=== PATIENT | female | born 1955 | race Caucasian/White ===

== ENCOUNTER 2019-05-24 12:07 | Inpatient (IN) ==
[2019-05-24] MEDS ORDERED: ONDANSETRON 4 MG/2 ML VIAL IV PRN (13:59)
[2019-05-24 14:10] LABS: Basophils % 0.1 % (0.0-0.8); Hematocrit 39.8 VOL% (35.7-47.0); Hemoglobin 12.4 GM/DL (12.0-16.0); Immature Granulocytes % 1.4 %; Immature Granulocytes Absolute 0.12 #; Lymphocytes # 0.6 10*3/uL (1.4-4.0); Lymphocytes % 6.6 % (21.3-54.2); Mean Corpuscular HGB Conc 31.2 GM/DL (32-36); Mean Platelet Volume 9.2 FL (9.6-12.0); Monocytes % 5.8 % (1.7-12.7); Neutrophils % 86.1 % (38.7-73.9); Platelet Count 276 T/CUMM (130-400); Red Blood Count 4.28 MC/CUMM (3.8-5.5); Red Cell Distribution Width 16.1 % (9.3-17.3); White Blood Count 8.3 T/CUMM (4-12)
[2019-05-24 14:19] LABS: PT Patient Result 10.5 SECS (9.6-12.2); Partial Thromboplastin Time 23.7 SECS (20.8-36.0)
[2019-05-24] MEDS: SODIUM CHLORIDE 0.9% 1,000 ML IV SCH (14:40)
[2019-05-24] MEDS: fentaNYL 25 MCG/HR PATCH TRANSDERM SCH (15:54)
[2019-05-24] MEDS ORDERED: MORPHINE 4 MG/1 ML VIAL IV SCH (16:00)
[2019-05-24] MEDS: MORPHINE 4 MG/1 ML VIAL IV PRN ×2 (16:07→20:11)
[2019-05-24] MEDS ORDERED: LOPERAMIDE 2 MG CAPSULE PO PRN (16:26)
[2019-05-24] MEDS: MORPHINE ER 30 MG TABLET PO SCH (20:15)
[2019-05-24] MEDS: GABAPENTIN 100 MG CAPSULE PO SCH (20:15)
[2019-05-24] MEDS: HEPARIN 5,000 UNIT/1 ML VIAL SUBCUT SCH (20:15)
[2019-05-24] MEDS: DONEPEZIL 5 MG TABLET PO SCH (21:21)
[2019-05-24] MEDS: SIMVASTATIN 20 MG TABLET PO SCH (21:21)
[2019-05-25] MEDS: SODIUM CHLORIDE 0.9% 1,000 ML IV SCH ×3 (00:40→19:31)
[2019-05-25] MEDS: MORPHINE 4 MG/1 ML VIAL IV PRN ×4 (04:05→22:05)
[2019-05-25 04:48] LABS: Eosinophils % 0.3 % (0.00-10.9); Hemoglobin 12.5 GM/DL (12.0-16.0); Immature Granulocytes % 0.8 %; Immature Granulocytes Absolute 0.06 #; Lymphocytes % 13.6 % (21.3-54.2); Mean Corpuscular HGB Conc 31.3 GM/DL (32-36); Mean Corpuscular Volume 93.2 FL (87-102); Mean Platelet Volume 9.7 FL (9.6-12.0); Monocytes % 11.3 % (1.7-12.7); Platelet Count 257 T/CUMM (130-400); Red Blood Count 4.29 MC/CUMM (3.8-5.5); White Blood Count 7.6 T/CUMM (4-12)
[2019-05-25] MEDS: HEPARIN 5,000 UNIT/1 ML VIAL SUBCUT SCH ×3 (05:11→20:55)
[2019-05-25 05:12] LABS: Calcium 8.4 MG/DL (8.5-10.1); Osmolality,Calculated 279.1 MOS/KG (273-304)
[2019-05-25] MEDS ORDERED: LISINOPRIL/HCTZ 20-12.5 MG TABLET PO SCH (09:00)
[2019-05-25] MEDS: CLOPIDOGREL 75 MG TABLET PO SCH (09:31)
[2019-05-25] MEDS: GABAPENTIN 100 MG CAPSULE PO SCH ×2 (09:31→20:53)
[2019-05-25] MEDS: LORATADINE 10 MG TABLET PO SCH (09:31)
[2019-05-25] MEDS: PANTOPRAZOLE 40 MG TABLET PO SCH (09:31)
[2019-05-25] MEDS: traZODone 50 MG TABLET PO SCH (09:31)
[2019-05-25] MEDS: MORPHINE ER 30 MG TABLET PO SCH ×2 (09:31→20:54)
[2019-05-25] MEDS: amLODIPine 10 MG TABLET PO SCH (09:44)
[2019-05-25] MEDS ORDERED: ceFAZolin 1,000 MG in SYRINGE 1 EACH IV ONE (10:22)
[2019-05-25] MEDS ORDERED: SKIN HEALING OINT (AQUAPHOR) 50 GM TUBE TOP PRN (15:29)
[2019-05-25] MEDS ORDERED: HYDROCORTISONE 25 MG SUPP RECTAL ONE (18:05)
[2019-05-25] MEDS: LACTOBACILLUS RHAMNOSUS GG CAPSULE PO SCH (20:54)
[2019-05-25] MEDS: DONEPEZIL 5 MG TABLET PO SCH (20:54)
[2019-05-25] MEDS: SIMVASTATIN 20 MG TABLET PO SCH (20:54)
[2019-05-25] MEDS: DOCUSATE SODIUM 100 MG CAPSULE PO SCH (20:54)
[2019-05-26] MEDS: MORPHINE 4 MG/1 ML VIAL IV PRN ×5 (02:49→21:16)
[2019-05-26] MEDS: HEPARIN 5,000 UNIT/1 ML VIAL SUBCUT SCH ×3 (04:01→20:25)
[2019-05-26 05:12] LABS: Calcium 7.8 MG/DL (8.5-10.1); Osmolality,Calculated 283.7 MOS/KG (273-304)
[2019-05-26] MEDS: SODIUM CHLORIDE 0.9% 1,000 ML IV SCH ×3 (06:03→23:11)
[2019-05-26] MEDS ORDERED: HYDROCORTISONE 25 MG SUPP RECTAL ONE (06:30)
[2019-05-26] MEDS ORDERED: HEPARIN 5,000 UNIT/1 ML VIAL ONE (06:39)
[2019-05-26] MEDS ORDERED: LIDOCAINE 1%/EPI INJ 20 ML VIAL ONE (06:40)
[2019-05-26] MEDS ORDERED: BUPIVACAINE MPF 0.25% 30 ML VIAL ONE (06:40)
[2019-05-26] MEDS ORDERED: TISSUE ADHESIVE 1 EACH APPLICATOR TOP ONE (07:46)
[2019-05-26] MEDS ORDERED: LIDOCAINE 2% 5 ML VIAL ONE (08:10)
[2019-05-26] MEDS ORDERED: propofoL 200 MG/20 ML VIAL IV ONE (08:10)
[2019-05-26] MEDS ORDERED: SODIUM CHLORIDE 0.9% 100 ML IV ONE (08:11)
[2019-05-26] MEDS ORDERED: MIDAZOLAM 2 MG/2 ML VIAL ONE (08:11)
[2019-05-26] MEDS ORDERED: fentaNYL 100 MCG/2 ML VIAL ONE (08:11)
[2019-05-26] MEDS: traZODone 50 MG TABLET PO SCH (08:59)
[2019-05-26] MEDS: amLODIPine 10 MG TABLET PO SCH (08:59)
[2019-05-26] MEDS: LACTOBACILLUS RHAMNOSUS GG CAPSULE PO SCH ×2 (09:00→20:24)
[2019-05-26] MEDS: DOCUSATE SODIUM 100 MG CAPSULE PO SCH ×2 (09:00→20:24)
[2019-05-26] MEDS: LORATADINE 10 MG TABLET PO SCH (09:00)
[2019-05-26] MEDS: GABAPENTIN 100 MG CAPSULE PO SCH ×2 (09:00→20:24)
[2019-05-26] MEDS: PANTOPRAZOLE 40 MG TABLET PO SCH (09:01)
[2019-05-26] MEDS: CLOPIDOGREL 75 MG TABLET PO SCH (09:01)
[2019-05-26] MEDS: MORPHINE ER 30 MG TABLET PO SCH ×2 (09:11→20:24)
[2019-05-26] MEDS ORDERED: PALONOSETRON 0.25 MG/5 ML VIAL IV ONE (12:17)
[2019-05-26] MEDS ORDERED: CARBOplatin 400 MG in SODIUM CHLORIDE 0.9% 250 ML IV ONE (13:00)
[2019-05-26] MEDS: DEXAMETHASONE INJ 10 MG in SODIUM CHLORIDE 0.9% 50 ML IV SCH (14:05)
[2019-05-26] MEDS: HYDROCORTISONE 25 MG SUPP RECTAL PRN (14:55)
[2019-05-26] MEDS: ETOPOSIDE 200 MG in SODIUM CHLORIDE 0.9% 500 ML IV SCH (15:34)
[2019-05-26] MEDS: DONEPEZIL 5 MG TABLET PO SCH (20:24)
[2019-05-26] MEDS: SIMVASTATIN 20 MG TABLET PO SCH (20:25)
[2019-05-27] MEDS: MORPHINE 4 MG/1 ML VIAL IV PRN ×6 (01:01→23:07)
[2019-05-27] MEDS: HEPARIN 5,000 UNIT/1 ML VIAL SUBCUT SCH ×3 (04:09→20:17)
[2019-05-27 05:57] LABS: Hematocrit 37.2 VOL% (35.7-47.0); Hemoglobin 11.2 GM/DL (12.0-16.0); Immature Granulocytes Absolute 0.06 #; Lymphocytes # 0.4 10*3/uL (1.4-4.0); Lymphocytes % 7.5 % (21.3-54.2); Mean Corpuscular HGB Conc 30.1 GM/DL (32-36); Mean Corpuscular Volume 96.9 FL (87-102); Mean Platelet Volume 9.8 FL (9.6-12.0); Monocytes % 5.6 % (1.7-12.7); Neutrophils % 85.9 % (38.7-73.9); Platelet Count 189 T/CUMM (130-400); Red Blood Count 3.84 MC/CUMM (3.8-5.5); Red Cell Distribution Width 15.8 % (9.3-17.3); White Blood Count 5.9 T/CUMM (4-12)
[2019-05-27 06:17] LABS: Calcium 7.5 MG/DL (8.5-10.1)
[2019-05-27] MEDS: CLOPIDOGREL 75 MG TABLET PO SCH (08:51)
[2019-05-27] MEDS: GABAPENTIN 100 MG CAPSULE PO SCH ×2 (08:51→20:17)
[2019-05-27] MEDS: LACTOBACILLUS RHAMNOSUS GG CAPSULE PO SCH ×2 (08:51→20:17)
[2019-05-27] MEDS: MORPHINE ER 30 MG TABLET PO SCH ×2 (08:52→20:17)
[2019-05-27] MEDS: PANTOPRAZOLE 40 MG TABLET PO SCH (08:52)
[2019-05-27] MEDS: LORATADINE 10 MG TABLET PO SCH (08:53)
[2019-05-27] MEDS: traZODone 50 MG TABLET PO SCH (08:53)
[2019-05-27] MEDS: DOCUSATE SODIUM 100 MG CAPSULE PO SCH ×2 (08:53→20:17)
[2019-05-27] MEDS: HYDROCORTISONE 25 MG SUPP RECTAL PRN ×2 (08:53→13:13)
[2019-05-27] MEDS: fentaNYL 25 MCG/HR PATCH TRANSDERM SCH (08:54)
[2019-05-27] MEDS: DEXAMETHASONE INJ 10 MG in SODIUM CHLORIDE 0.9% 50 ML IV SCH (08:57)
[2019-05-27] MEDS: amLODIPine 10 MG TABLET PO SCH (08:59)
[2019-05-27] MEDS: ETOPOSIDE 200 MG in SODIUM CHLORIDE 0.9% 500 ML IV SCH (13:01)
[2019-05-27] MEDS ORDERED: fentaNYL 50 MCG/HR PATCH TRANSDERM SCH (14:30)
[2019-05-27] MEDS: SODIUM CHLORIDE 0.9% 1,000 ML IV SCH (15:31)
[2019-05-27] MEDS: SIMVASTATIN 20 MG TABLET PO SCH (20:17)
[2019-05-27] MEDS: DONEPEZIL 5 MG TABLET PO SCH (20:17)
[2019-05-28] MEDS: SODIUM CHLORIDE 0.9% 1,000 ML IV SCH ×2 (01:11→14:47)
[2019-05-28] MEDS: MORPHINE 4 MG/1 ML VIAL IV PRN ×4 (03:08→15:44)
[2019-05-28] MEDS: HEPARIN 5,000 UNIT/1 ML VIAL SUBCUT SCH ×2 (03:12→14:48)
[2019-05-28] MEDS: MORPHINE ER 30 MG TABLET PO SCH (09:06)
[2019-05-28] MEDS: DOCUSATE SODIUM 100 MG CAPSULE PO SCH (09:07)
[2019-05-28] MEDS: traZODone 50 MG TABLET PO SCH (09:07)
[2019-05-28] MEDS: CLOPIDOGREL 75 MG TABLET PO SCH (09:07)
[2019-05-28] MEDS: amLODIPine 10 MG TABLET PO SCH (09:07)
[2019-05-28] MEDS: GABAPENTIN 100 MG CAPSULE PO SCH (09:07)
[2019-05-28] MEDS: LACTOBACILLUS RHAMNOSUS GG CAPSULE PO SCH (09:07)
[2019-05-28] MEDS: LORATADINE 10 MG TABLET PO SCH (09:07)
[2019-05-28] MEDS: PANTOPRAZOLE 40 MG TABLET PO SCH (09:07)
[2019-05-28] MEDS: DEXAMETHASONE INJ 10 MG in SODIUM CHLORIDE 0.9% 50 ML IV SCH (10:40)
[2019-05-28] MEDS: ETOPOSIDE 200 MG in SODIUM CHLORIDE 0.9% 500 ML IV SCH (11:21)
[2019-05-28] MEDS ORDERED: WITCH HAZEL PADS 100/JAR TOP PRN (12:19)
[2019-05-28] MEDS ORDERED: POLYETHYLENE GLYCOL POWDER 17 GM PACK PO SCH (12:30)
[2019-05-28] MEDS ORDERED: PRAMOXINE/HYDROCORTISONE RECTAL FOAM 10 GM CAN TOP PRN (12:35)
[2019-05-28] MEDS ORDERED: HEPARIN LOCK FLUSH 500 UNIT/5 ML SYRINGE IV ONE (15:28)
[2019-05-28 15:53] VITALS: BP 134/65
== END 2019-05-28 16:30 | disposition home or self-care (01) | DRG 940 ==
LOC: SUATTDRO 13:34 → N.4E 13:34
PROVIDERS: ADMIT Internal Medicine; ATTEND Internal Medicine

== ENCOUNTER 2019-07-06 09:55 | Inpatient (IN) ==
[2019-07-06] MEDS ORDERED: hydrALAZINE 20 MG/1 ML VIAL IV PRN (11:11)
[2019-07-06] MEDS ORDERED: ACETAMINOPHEN 325 MG TABLET PO PRN (11:11)
[2019-07-06] MEDS ORDERED: NICOTINE 21 MG/24 HR PATCH TRANSDERM PRN (11:11)
[2019-07-06] MEDS ORDERED: cefTRIAXone 1,000 MG in SYRINGE 1 EACH IV SCH (11:30)
[2019-07-06] MEDS ORDERED: SODIUM CHLORIDE 0.9% 1,000 ML IV SCH (11:30)
[2019-07-06 11:51] LABS: Basophils % 0.5 % (0.0-0.8); Eosinophils # 0.1 10*3/uL (0.0-0.87); Eosinophils % 1.1 % (0.00-10.9); Hematocrit 28.1 VOL% (35.7-47.0); Hemoglobin 8.4 GM/DL (12.0-16.0); Immature Granulocytes % 8.6 %; Immature Granulocytes Absolute 0.47 #; Lymphocytes # 0.7 10*3/uL (1.4-4.0); Lymphocytes % 12.8 % (21.3-54.2); Mean Corpuscular HGB Conc 29.9 GM/DL (32-36); Mean Platelet Volume 9.5 FL (9.6-12.0); Monocytes % 23.6 % (1.7-12.7); NRBC # 0.16 10*3/uL; Neutrophils % 53.4 % (38.7-73.9); Platelet Count 196 T/CUMM (130-400); Red Blood Count 2.81 MC/CUMM (3.8-5.5); Red Cell Distribution Width 19.1 % (9.3-17.3); White Blood Count 5.5 T/CUMM (4-12)
[2019-07-06 12:21] LABS: Albumin 2.9 G/DL (3.4-5.0); Bilirubin,Total 0.5 MG/DL (0.2-1.0); Calcium 8.7 MG/DL (8.5-10.1); Osmolality,Calculated 279.5 MOS/KG (273-304); Thyroid Stimulating Hormone 2.76 uIU/ml (0.358-3.74); Total Protein 6.6 G/DL (6.4-8.3)
[2019-07-06] MEDS ORDERED: POTASSIUM CHLORIDE 20 MEQ TABLET PO ONE (12:27)
[2019-07-06] MEDS ORDERED: MAGNESIUM SULF RIDER 2 GM in PREMIX 1 EACH IV ONE (12:28)
[2019-07-06 12:48] LABS: Anisocytosis 2+; Band Neutrophils 16 % (0-10); Lymphocytes 13 % (20-55); Metamyelocytes 3 %; Nucleated Red Blood Cells 4 (0-5); Platelet Estimate Normal; Segmented Neutrophils 48 % (50-85); Total Cells Counted 100
[2019-07-06 12:49] LABS: Macrocytosis Slight; Polychromasia Slight
[2019-07-06] MEDS: MORPHINE 4 MG/1 ML VIAL IV PRN ×2 (13:24→17:55)
[2019-07-06 15:29] LABS: % Iron Saturation 11.7 % (18-50); Ferritin 228.8 ng/ml (8-252)
[2019-07-06] MEDS: FUROSEMIDE 40 MG/4 ML VIAL IV SCH (16:22)
[2019-07-06] MEDS: ONDANSETRON 4 MG/2 ML VIAL IV PRN (16:43)
[2019-07-06] MEDS: PIPERACILLIN/TAZOBACTAM 3,375 MG in SODIUM CHLORIDE 0.9% 100 ML IV SCH ×2 (17:56→22:29)
[2019-07-06] MEDS: MORPHINE ER 30 MG TABLET PO SCH (20:47)
[2019-07-06] MEDS: ENOXAPARIN 40 MG/0.4 ML SYRINGE SUBCUT SCH (20:48)
[2019-07-07] MEDS: MORPHINE 4 MG/1 ML VIAL IV PRN ×5 (00:08→22:55)
[2019-07-07 02:28] LABS: Apearance,Urine Slightly Hazy (Clear); Bilirubin,Urine Negative (Negative); Blood, Urine Small mg/dL (Negative); Glucose,Urine (UA) Negative (Negative); Hyaline Casts,Urine 1 /LPF (0-3); Ketones,Urine Negative (Negative); Nitrite,Urine Negative (Negative); Protein,Urine Negative; RBC,Urine 1 /HPF (0-4); Squamous Epithelial Cell,Urine Few /HPF (0-10); Urine Color Yellow (Yellow); Urine Specific Gravity 1.016 (1.001-1.035); WBC,Urine 1 /HPF (0-6)
[2019-07-07 05:24] LABS: Basophils % 0.6 % (0.0-0.8); Eosinophils # 0.1 10*3/uL (0.0-0.87); Eosinophils % 1.6 % (0.00-10.9); Hematocrit 26.5 VOL% (35.7-47.0); Hemoglobin 7.9 GM/DL (12.0-16.0); Immature Granulocytes % 7.4 %; Immature Granulocytes Absolute 0.37 #; Lymphocytes # 0.8 10*3/uL (1.4-4.0); Lymphocytes % 15.9 % (21.3-54.2); Mean Corpuscular HGB Conc 29.8 GM/DL (32-36); Mean Platelet Volume 10.1 FL (9.6-12.0); Monocytes % 21.5 % (1.7-12.7); NRBC # 0.12 10*3/uL; Platelet Count 198 T/CUMM (130-400); Red Blood Count 2.65 MC/CUMM (3.8-5.5); Red Cell Distribution Width 19.3 % (9.3-17.3)
[2019-07-07 05:49] LABS: Band Neutrophils 2 % (0-10); Eosinophils 4 % (0-10); Hypochromasia 1+; Lymphocytes 15 % (20-55); Macrocytosis Slight; Nucleated Red Blood Cells 4 (0-5); Platelet Estimate Adequate; Polychromasia Slight; Segmented Neutrophils 65 % (50-85); Total Cells Counted 100
[2019-07-07 05:50] LABS: Calcium 8.5 MG/DL (8.5-10.1); Osmolality,Calculated 277.7 MOS/KG (273-304)
[2019-07-07 05:56] LABS: Risk Ratio 3.52; VLDL CHOLESTEROL 40.2 MG/DL
[2019-07-07] MEDS ORDERED: SODIUM CHLORIDE 0.9% 1,000 ML IV PRN (07:32)
[2019-07-07] MEDS ORDERED: PERMETHRIN 5% CREAM 60 GM TUBE TOP ONE (08:36)
[2019-07-07] MEDS ORDERED: PERMETHRIN 5% CREAM 60 GM TUBE TOP SCH (09:00)
[2019-07-07] MEDS: PIPERACILLIN/TAZOBACTAM 3,375 MG in SODIUM CHLORIDE 0.9% 100 ML IV SCH ×3 (09:45→19:49)
[2019-07-07] MEDS: POTASSIUM CHLORIDE 20 MEQ TABLET PO SCH ×2 (09:46→15:39)
[2019-07-07] MEDS: PANTOPRAZOLE 40 MG TABLET PO SCH (09:46)
[2019-07-07] MEDS: MORPHINE ER 30 MG TABLET PO SCH ×2 (09:46→21:24)
[2019-07-07] MEDS: HydrOXYzine PAMOATE 25 MG CAPSULE PO PRN ×2 (09:46→21:24)
[2019-07-07] MEDS: FUROSEMIDE 40 MG/4 ML VIAL IV SCH ×2 (09:47→15:35)
[2019-07-07] MEDS: ONDANSETRON 4 MG/2 ML VIAL IV PRN (10:29)
[2019-07-07] MEDS: ENOXAPARIN 40 MG/0.4 ML SYRINGE SUBCUT SCH (21:25)
[2019-07-07] MEDS: diphenhydrAMINE CAP 25 MG CAPSULE PO PRN (22:55)
[2019-07-08] MEDS: PIPERACILLIN/TAZOBACTAM 3,375 MG in SODIUM CHLORIDE 0.9% 100 ML IV SCH ×2 (01:04→08:22)
[2019-07-08] MEDS: MORPHINE 4 MG/1 ML VIAL IV PRN ×2 (04:39→10:12)
[2019-07-08 05:35] LABS: Basophils # 0.1 10*3/uL (0.0-0.2); Basophils % 0.9 % (0.0-0.8); Eosinophils # 0.1 10*3/uL (0.0-0.87); Eosinophils % 1.9 % (0.00-10.9); Hematocrit 30.3 VOL% (35.7-47.0); Hemoglobin 9.5 GM/DL (12.0-16.0); Immature Granulocytes % 5.8 %; Immature Granulocytes Absolute 0.34 #; Lymphocytes # 0.9 10*3/uL (1.4-4.0); Lymphocytes % 15.6 % (21.3-54.2); Mean Corpuscular HGB Conc 31.4 GM/DL (32-36); Mean Corpuscular Volume 95.6 FL (87-102); Mean Platelet Volume 9.6 FL (9.6-12.0); Monocytes % 19.3 % (1.7-12.7); NRBC # 0.14 10*3/uL; Neutrophils % 56.5 % (38.7-73.9); Platelet Count 178 T/CUMM (130-400); Red Blood Count 3.17 MC/CUMM (3.8-5.5); Red Cell Distribution Width 19.6 % (9.3-17.3); White Blood Count 5.9 T/CUMM (4-12)
[2019-07-08 05:50] LABS: Calcium 8.2 MG/DL (8.5-10.1); Osmolality,Calculated 276.8 MOS/KG (273-304)
[2019-07-08 06:06] LABS: Anisocytosis 2+; Band Neutrophils 18 % (0-10); Eosinophils 1 % (0-10); Lymphocytes 15 % (20-55); Nucleated Red Blood Cells 6 (0-5); Platelet Estimate Normal; Polychromasia Slight; Segmented Neutrophils 50 % (50-85); Total Cells Counted 100
[2019-07-08 06:07] LABS: Macrocytosis Slight
[2019-07-08] MEDS ORDERED: MAGNESIUM SULF RIDER 2 GM in PREMIX 1 EACH IV ONE (07:46)
[2019-07-08] MEDS: HydrOXYzine PAMOATE 25 MG CAPSULE PO PRN (08:21)
[2019-07-08] MEDS: PANTOPRAZOLE 40 MG TABLET PO SCH (08:22)
[2019-07-08] MEDS: MORPHINE ER 30 MG TABLET PO SCH ×2 (08:22→22:21)
[2019-07-08] MEDS ORDERED: diphenhydrAMINE CAP 50 MG CAPSULE PO ONE (10:02)
[2019-07-08] MEDS ORDERED: methylPREDNISolone SOD SUC 125 MG/2 ML VIAL IV ONE (10:02)
[2019-07-08] MEDS ORDERED: FAMOTIDINE 8 MG/ML 50 ML/BOTTLE PO ONE (10:03)
[2019-07-08] MEDS: ONDANSETRON 4 MG/2 ML VIAL IV PRN (10:12)
[2019-07-08] MEDS ORDERED: FAMOTIDINE 20 MG TABLET PO ONE (10:23)
[2019-07-08] MEDS: GABAPENTIN 100 MG CAPSULE PO SCH ×3 (11:13→22:20)
[2019-07-08] MEDS: CLORAZEPATE 7.5 MG TABLET PO SCH ×2 (15:30→22:21)
[2019-07-08] MEDS: methylPREDNISolone SOD SUC 40 MG/1 ML VIAL IV SCH (17:53)
[2019-07-08] MEDS: diphenhydrAMINE CAP 25 MG CAPSULE PO PRN (22:20)
[2019-07-08] MEDS: cephALEXin 500 MG CAPSULE PO SCH (22:20)
[2019-07-08] MEDS: ENOXAPARIN 40 MG/0.4 ML SYRINGE SUBCUT SCH (22:21)
[2019-07-09] MEDS: methylPREDNISolone SOD SUC 40 MG/1 ML VIAL IV SCH ×2 (02:05→08:33)
[2019-07-09] MEDS: HydrOXYzine PAMOATE 25 MG CAPSULE PO PRN (03:16)
[2019-07-09 05:37] LABS: Basophils % 0.4 % (0.0-0.8); Hematocrit 35.9 VOL% (35.7-47.0); Hemoglobin 10.7 GM/DL (12.0-16.0); Immature Granulocytes % 3.8 %; Immature Granulocytes Absolute 0.35 #; Lymphocytes # 0.7 10*3/uL (1.4-4.0); Lymphocytes % 7.6 % (21.3-54.2); Mean Corpuscular HGB Conc 29.8 GM/DL (32-36); Mean Corpuscular Volume 98.9 FL (87-102); Mean Platelet Volume 9.8 FL (9.6-12.0); Monocytes % 9.6 % (1.7-12.7); NRBC # 0.11 10*3/uL; Neutrophils % 78.6 % (38.7-73.9); Platelet Count 224 T/CUMM (130-400); Red Blood Count 3.63 MC/CUMM (3.8-5.5); Red Cell Distribution Width 19.2 % (9.3-17.3); White Blood Count 9.2 T/CUMM (4-12)
[2019-07-09 05:55] LABS: Calcium 8.5 MG/DL (8.5-10.1); Osmolality,Calculated 273.2 MOS/KG (273-304)
[2019-07-09] MEDS: CLORAZEPATE 7.5 MG TABLET PO SCH (08:32)
[2019-07-09] MEDS: GABAPENTIN 100 MG CAPSULE PO SCH (08:32)
[2019-07-09] MEDS: cephALEXin 500 MG CAPSULE PO SCH (08:32)
[2019-07-09] MEDS: PANTOPRAZOLE 40 MG TABLET PO SCH (08:33)
[2019-07-09] MEDS: MORPHINE ER 30 MG TABLET PO SCH (08:33)
[2019-07-09] MEDS: MORPHINE 4 MG/1 ML VIAL IV PRN (09:45)
[2019-07-09 11:37] VITALS: BP 146/69
[2019-07-09] MEDS ORDERED: HEPARIN LOCK FLUSH 500 UNIT/5 ML SYRINGE IV ONE (12:37)
== END 2019-07-09 13:10 | disposition home health service (06) | DRG 300 ==
LOC: INTOOBSV 10:37 → SUATTDRO 10:37 → N.4E 10:37
PROVIDERS: ADMIT Internal Medicine; ATTEND Internal Medicine

== ENCOUNTER 2020-03-06 11:25 | Inpatient (IN) ==
[2020-03-06] MEDS ORDERED: GLUCAGON 1 MG VIAL IM PRN (12:34)
[2020-03-06] MEDS ORDERED: DEXTROSE 50% 25 GM/50 ML VIAL IV PRN (12:34)
[2020-03-06] MEDS ORDERED: ONDANSETRON 4 MG/2 ML VIAL IV PRN (12:44)
[2020-03-06] MEDS ORDERED: ALBUTEROL 2.5 MG/3 ML NEB RESP TX PRN (12:52)
[2020-03-06] MEDS: ALBUTEROL/IPRATROPIUM 3 ML NEB RESP TX SCH ×2 (13:25→19:35)
[2020-03-06 13:33] LABS: Basophils % 0.5 % (0.0-0.8); Eosinophils # 0.1 10*3/uL (0.0-0.87); Eosinophils % 1.4 % (0.00-10.9); Hematocrit 35.6 VOL% (35.7-47.0); Hemoglobin 10.5 GM/DL (12.0-16.0); Immature Granulocytes % 0.8 %; Immature Granulocytes Absolute 0.06 #; Lymphocytes # 0.8 10*3/uL (1.4-4.0); Lymphocytes % 10.9 % (21.3-54.2); Mean Corpuscular HGB Conc 29.5 GM/DL (32-36); Mean Platelet Volume 8.8 FL (9.6-12.0); Monocytes % 11.4 % (1.7-12.7); Platelet Count 279 T/CUMM (130-400); Red Blood Count 4.24 MC/CUMM (3.8-5.5); White Blood Count 7.4 T/CUMM (4-12)
[2020-03-06 13:36] LABS: ABG Base Excess 9.1 MMOL/L (-2.5-2.5); ABG HCO3 32.8 MMOL/L (20-26); ABG Oxygen Saturation 95.6 % (95-100); ABG PH 7.382 (7.35-7.45); ABG PO2 81.7 MM HG (80-95); Allen Test Positive
[2020-03-06 13:56] LABS: Albumin 2.8 G/DL (3.4-5.0); Bilirubin,Total 0.6 MG/DL (0.2-1.0); Calcium 9.3 MG/DL (8.5-10.1); Osmolality,Calculated 270.5 MOS/KG (273-304); Total Protein 7.9 G/DL (6.4-8.3)
[2020-03-06] MEDS: methylPREDNISolone SOD SUC 40 MG/1 ML VIAL IV SCH ×2 (14:37→20:11)
[2020-03-06] MEDS: cefTRIAXone 1,000 MG in SYRINGE 1 EACH IV SCH (14:42)
[2020-03-06] MEDS: AZITHROMYCIN INJ 500 MG in SODIUM CHLORIDE 0.9% 250 ML IV SCH (14:47)
[2020-03-06 14:49] LABS: INR 1.1; PT Patient Result 11.3 SECS (9.8-11.9); Partial Thromboplastin Time 28.1 SECS (23.9-33.8)
[2020-03-06] MEDS: ACETAMINOPHEN 325 MG TABLET PO PRN ×2 (15:35→19:48)
[2020-03-06 15:58] LABS: Bacteria,Urine Occasional /HPF (Few); Bilirubin,Urine Negative (Negative); Blood, Urine Negative (Negative); Glucose,Urine (UA) Negative (Negative); Ketones,Urine Negative (Negative); Mucus,Urine Occasional /LPF (Occasional); Nitrite,Urine Negative (Negative); Protein,Urine Negative; Squamous Epithelial Cell,Urine Few /HPF (0-10); Urine Appearance CLOUDY (Clear); Urine Color Amber (Yellow); Urine Specific Gravity 1.012 (1.001-1.035); WBC,Urine 15 /HPF (0-6)
[2020-03-06] MEDS: MORPHINE IR 15 MG TABLET PO PRN (19:47)
[2020-03-06] MEDS ORDERED: MORPHINE IR 15 MG TABLET PO SCH (20:00)
[2020-03-06] MEDS: SIMVASTATIN 20 MG TABLET PO SCH (20:11)
[2020-03-06] MEDS: MORPHINE ER 30 MG TABLET PO SCH (20:11)
[2020-03-06] MEDS: GABAPENTIN 600 MG TABLET PO SCH (20:11)
[2020-03-06] MEDS: DONEPEZIL 5 MG TABLET PO SCH (20:11)
[2020-03-06] MEDS ORDERED: CLOPIDOGREL 75 MG TABLET PO SCH (21:00)
[2020-03-07] MEDS: ALBUTEROL/IPRATROPIUM 3 ML NEB RESP TX SCH ×4 (00:45→19:06)
[2020-03-07] MEDS: methylPREDNISolone SOD SUC 40 MG/1 ML VIAL IV SCH ×3 (04:45→20:11)
[2020-03-07 05:44] LABS: % Iron Saturation 7.2 % (18-50); Ferritin 214.9 ng/ml (8-252)
[2020-03-07] MEDS: MORPHINE IR 15 MG TABLET PO PRN ×3 (06:35→22:47)
[2020-03-07 07:22] LABS: Basophils % 0.1 % (0.0-0.8); Hematocrit 36.9 VOL% (35.7-47.0); Immature Granulocytes % 0.9 %; Immature Granulocytes Absolute 0.07 #; Lymphocytes # 0.3 10*3/uL (1.4-4.0); Lymphocytes % 4.2 % (21.3-54.2); Mean Corpuscular HGB Conc 29.8 GM/DL (32-36); Mean Corpuscular Volume 82.4 FL (87-102); Mean Platelet Volume 8.9 FL (9.6-12.0); Monocytes % 2.1 % (1.7-12.7); Neutrophils % 92.7 % (38.7-73.9); Platelet Count 274 T/CUMM (130-400); Red Blood Count 4.48 MC/CUMM (3.8-5.5); Red Cell Distribution Width 19.7 % (9.3-17.3)
[2020-03-07 07:34] LABS: Calcium 9.3 MG/DL (8.5-10.1); Osmolality,Calculated 276.7 MOS/KG (273-304)
[2020-03-07 07:41] LABS: Hypochromasia 1+; Lymphocytes 1 % (20-55); Platelet Estimate Adequate; Segmented Neutrophils 95 % (50-85); Total Cells Counted 100
[2020-03-07 07:42] LABS: Microcytosis Slight; Ovalocytes Slight
[2020-03-07] MEDS: traZODone 50 MG TABLET PO SCH (08:42)
[2020-03-07] MEDS: PANTOPRAZOLE 40 MG TABLET PO SCH (08:42)
[2020-03-07] MEDS: LORATADINE 10 MG TABLET PO SCH (08:42)
[2020-03-07] MEDS: MORPHINE ER 30 MG TABLET PO SCH ×2 (08:42→20:10)
[2020-03-07] MEDS: GABAPENTIN 600 MG TABLET PO SCH ×2 (08:42→20:10)
[2020-03-07] MEDS: FLUTICASONE 50 MCG NASAL SPRAY 16 GM BOTTLE BOTH NARES SCH (08:49)
[2020-03-07] MEDS ORDERED: CHLORTHALIDONE 25 MG TABLET PO SCH (09:00)
[2020-03-07] MEDS: FUROSEMIDE 40 MG/4 ML VIAL IV SCH (11:08)
[2020-03-07] MEDS: INSULIN REGULAR 100 UNIT/ML SUBCUT SCH ×3 (12:10→21:04)
[2020-03-07] MEDS: cefTRIAXone 1,000 MG in SYRINGE 1 EACH IV SCH (13:21)
[2020-03-07] MEDS: AZITHROMYCIN INJ 500 MG in SODIUM CHLORIDE 0.9% 250 ML IV SCH (13:27)
[2020-03-07] MEDS ORDERED: DEXAMETHASONE 10 MG/1 ML VIAL IV ONE (16:30)
[2020-03-07] MEDS ORDERED: ATROPINE 0.4 MG/1 ML VIAL IV ONE (16:30)
[2020-03-07] MEDS ORDERED: PALONOSETRON 0.25 MG/5 ML VIAL IV ONE (16:30)
[2020-03-07] MEDS ORDERED: FOSAPREPITANT 150 MG in SODIUM CHLORIDE 0.9% 100 ML IV ONE (16:30)
[2020-03-07] MEDS ORDERED: DEXTROSE 5% IV ONE (17:00)
[2020-03-07] MEDS ORDERED: IRINOTECAN IV ONE (17:00)
[2020-03-07] MEDS: DONEPEZIL 5 MG TABLET PO SCH (20:10)
[2020-03-07] MEDS: SIMVASTATIN 20 MG TABLET PO SCH (20:11)
[2020-03-07] MEDS ORDERED: DONEPEZIL 5 MG TABLET PO SCH (21:00)
[2020-03-08] MEDS: ALBUTEROL/IPRATROPIUM 3 ML NEB RESP TX SCH ×4 (00:20→19:57)
[2020-03-08] MEDS: ACETAMINOPHEN 325 MG TABLET PO PRN ×3 (03:24→13:00)
[2020-03-08] MEDS: methylPREDNISolone SOD SUC 40 MG/1 ML VIAL IV SCH ×2 (04:23→18:12)
[2020-03-08] MEDS: GABAPENTIN 600 MG TABLET PO SCH ×2 (09:19→21:28)
[2020-03-08] MEDS: LORATADINE 10 MG TABLET PO SCH (09:19)
[2020-03-08] MEDS: INSULIN REGULAR 100 UNIT/ML SUBCUT SCH ×4 (09:19→21:26)
[2020-03-08] MEDS: traZODone 50 MG TABLET PO SCH (09:19)
[2020-03-08] MEDS: PANTOPRAZOLE 40 MG TABLET PO SCH (09:20)
[2020-03-08] MEDS: FLUTICASONE 50 MCG NASAL SPRAY 16 GM BOTTLE BOTH NARES SCH (09:21)
[2020-03-08] MEDS: FUROSEMIDE 40 MG/4 ML VIAL IV SCH (09:21)
[2020-03-08 09:23] LABS: Basophils % 0.1 % (0.0-0.8); Hematocrit 35.4 VOL% (35.7-47.0); Hemoglobin 10.5 GM/DL (12.0-16.0); Immature Granulocytes % 0.6 %; Immature Granulocytes Absolute 0.08 #; Lymphocytes # 0.1 10*3/uL (1.4-4.0); Mean Corpuscular HGB Conc 29.7 GM/DL (32-36); Mean Corpuscular Volume 83.7 FL (87-102); Mean Platelet Volume 8.7 FL (9.6-12.0); Monocytes % 3.3 % (1.7-12.7); Platelet Count 286 T/CUMM (130-400); Red Blood Count 4.23 MC/CUMM (3.8-5.5); Red Cell Distribution Width 19.7 % (9.3-17.3); White Blood Count 14.3 T/CUMM (4-12)
[2020-03-08] MEDS: MORPHINE ER 30 MG TABLET PO SCH ×2 (09:23→21:27)
[2020-03-08 09:43] LABS: Band Neutrophils 3 % (0-10); Calcium 9.3 MG/DL (8.5-10.1); Hypochromasia 1+; Lymphocytes 1 % (20-55); Microcytosis 1+; Osmolality,Calculated 279.8 MOS/KG (273-304); Segmented Neutrophils 93 % (50-85); Total Cells Counted 100
[2020-03-08 09:44] LABS: Ovalocytes Slight; Platelet Estimate Normal
[2020-03-08] MEDS: MORPHINE IR 15 MG TABLET PO PRN ×2 (11:04→23:49)
[2020-03-08 11:27] LABS: Alanine Aminotransferase 19 U/L (13-56); Alkaline Phosphatase 89 U/L (45-117); Aspartate Amino Transferase 27 U/L (0-37); Bilirubin,Total < 0.39 MG/DL (0.2-1.0); Blood Urea Nitrogen 49 MG/DL (7-18); Calcium 9.5 MG/DL (8.5-10.1); Estimated Glom Filtration Rate 38 ML/MIN; Glucose 229 MG/DL (74-106); Osmolality,Calculated 281.7 MOS/KG (273-304); Total Protein 8.3 G/DL (6.4-8.3)
[2020-03-08] MEDS: cefTRIAXone 1,000 MG in SYRINGE 1 EACH IV SCH (13:01)
[2020-03-08] MEDS ORDERED: DEXTROSE 50% 25 GM/50 ML VIAL IV PRN (13:48)
[2020-03-08] MEDS: BACLOFEN 10 MG TABLET PO PRN ×2 (18:15→21:28)
[2020-03-08] MEDS: INSULIN GLARGINE 100 UNIT/ML SUBCUT SCH (21:28)
[2020-03-08] MEDS: SIMVASTATIN 20 MG TABLET PO SCH (21:28)
[2020-03-08] MEDS: DONEPEZIL 5 MG TABLET PO SCH (21:28)
[2020-03-08] MEDS: ZALEPLON 5 MG CAPSULE PO PRN (22:25)
[2020-03-09] MEDS: ALBUTEROL/IPRATROPIUM 3 ML NEB RESP TX SCH ×4 (01:10→19:43)
[2020-03-09] MEDS: methylPREDNISolone SOD SUC 40 MG/1 ML VIAL IV SCH ×2 (04:42→16:14)
[2020-03-09] MEDS: BACLOFEN 10 MG TABLET PO PRN ×3 (04:49→21:11)
[2020-03-09 06:00] LABS: Calcium 9.6 MG/DL (8.5-10.1); Osmolality,Calculated 290.2 MOS/KG (273-304)
[2020-03-09 06:11] LABS: Basophils % 0.1 % (0.0-0.8); Hematocrit 36.8 VOL% (35.7-47.0); Immature Granulocytes % 0.4 %; Immature Granulocytes Absolute 0.04 #; Lymphocytes # 0.1 10*3/uL (1.4-4.0); Lymphocytes % 1.3 % (21.3-54.2); Mean Corpuscular HGB Conc 29.3 GM/DL (32-36); Mean Corpuscular Volume 82.7 FL (87-102); Neutrophils % 94.2 % (38.7-73.9); Platelet Count 271 T/CUMM (130-400); Red Blood Count 4.45 MC/CUMM (3.8-5.5); Red Cell Distribution Width 19.8 % (9.3-17.3)
[2020-03-09 06:12] LABS: Hemoglobin 10.8 GM/DL (12.0-16.0)
[2020-03-09 06:18] LABS: Hypochromasia Slight; Microcytosis Slight; Platelet Estimate Normal; Segmented Neutrophils 97 % (50-85); Total Cells Counted 100
[2020-03-09] MEDS: PANTOPRAZOLE 40 MG TABLET PO SCH (09:22)
[2020-03-09] MEDS: MORPHINE ER 30 MG TABLET PO SCH ×2 (09:23→21:12)
[2020-03-09] MEDS: LORATADINE 10 MG TABLET PO SCH (09:23)
[2020-03-09] MEDS: AZITHROMYCIN 250 MG TABLET PO SCH (09:23)
[2020-03-09] MEDS: traZODone 50 MG TABLET PO SCH (09:23)
[2020-03-09] MEDS: INSULIN REGULAR 100 UNIT/ML SUBCUT SCH ×4 (09:23→21:09)
[2020-03-09] MEDS: CHOLECALCIFEROL 1,000 UNIT TABLET PO SCH (09:23)
[2020-03-09] MEDS: GABAPENTIN 600 MG TABLET PO SCH ×2 (09:23→21:11)
[2020-03-09] MEDS: FLUTICASONE 50 MCG NASAL SPRAY 16 GM BOTTLE BOTH NARES SCH (09:24)
[2020-03-09] MEDS ORDERED: SODIUM PHOSPHATE ENEMA 133 ML BOTTLE RECTAL ONE (14:28)
[2020-03-09] MEDS: MORPHINE IR 15 MG TABLET PO PRN (16:15)
[2020-03-09] MEDS: cefTRIAXone 1,000 MG in SYRINGE 1 EACH IV SCH (16:16)
[2020-03-09] MEDS: INSULIN GLARGINE 100 UNIT/ML SUBCUT SCH (21:09)
[2020-03-09] MEDS: ZALEPLON 5 MG CAPSULE PO PRN (21:11)
[2020-03-09] MEDS: DONEPEZIL 5 MG TABLET PO SCH (21:11)
[2020-03-09] MEDS: SIMVASTATIN 20 MG TABLET PO SCH (21:11)
[2020-03-09] MEDS: BISACODYL 5 MG TABLET PO PRN (21:23)
[2020-03-10] MEDS: ALBUTEROL/IPRATROPIUM 3 ML NEB RESP TX SCH ×4 (01:45→20:18)
[2020-03-10] MEDS: methylPREDNISolone SOD SUC 40 MG/1 ML VIAL IV SCH (04:26)
[2020-03-10] MEDS: MORPHINE IR 15 MG TABLET PO PRN ×2 (04:27→21:41)
[2020-03-10 06:49] LABS: Hematocrit 34.2 VOL% (35.7-47.0); Immature Granulocytes % 0.4 %; Immature Granulocytes Absolute 0.03 #; Lymphocytes # 0.2 10*3/uL (1.4-4.0); Lymphocytes % 2.4 % (21.3-54.2); Mean Corpuscular HGB Conc 29.2 GM/DL (32-36); Mean Corpuscular Volume 82.6 FL (87-102); Mean Platelet Volume 8.9 FL (9.6-12.0); Monocytes % 3.6 % (1.7-12.7); Neutrophils % 93.6 % (38.7-73.9); Platelet Count 226 T/CUMM (130-400); Red Blood Count 4.14 MC/CUMM (3.8-5.5); Red Cell Distribution Width 19.7 % (9.3-17.3); White Blood Count 6.7 T/CUMM (4-12)
[2020-03-10 07:08] LABS: Hypochromasia 1+; Lymphocytes 3 % (20-55); Microcytosis 1+; Ovalocytes Slight; Platelet Estimate Adequate; Segmented Neutrophils 93 % (50-85); Total Cells Counted 100
[2020-03-10 07:10] LABS: Calcium 9.1 MG/DL (8.5-10.1); Osmolality,Calculated 281.7 MOS/KG (273-304)
[2020-03-10 07:15] LABS: PT Patient Result 10.5 SECS (9.8-11.9); Partial Thromboplastin Time 25.3 SECS (23.9-33.8)
[2020-03-10] MEDS: INSULIN REGULAR 100 UNIT/ML SUBCUT SCH ×4 (08:08→21:40)
[2020-03-10 08:09] LABS: Albumin 2.8 G/DL (3.4-5.0)
[2020-03-10] MEDS ORDERED: INSULIN GLARGINE 100 UNIT/ML SUBCUT SCH (08:15)
[2020-03-10 09:24] LABS: Lymphocytes,Pleural Fluid 51 %; Monocytes,Pleural Fluid 8 %; Neutrophils,Pleural Fluid 41 %
[2020-03-10 09:28] LABS: RBC,Pleural Fluid 36698 T/CUMM
[2020-03-10 09:34] LABS: Glucose,Pleural Fluid 153 MG/DL; LDH,Body Fluid 631 U/L; Total Protein,Body Fluid 5.2 G/DL
[2020-03-10] MEDS: GABAPENTIN 600 MG TABLET PO SCH ×2 (11:00→21:39)
[2020-03-10] MEDS: CHOLECALCIFEROL 1,000 UNIT TABLET PO SCH (11:00)
[2020-03-10] MEDS: PANTOPRAZOLE 40 MG TABLET PO SCH (11:00)
[2020-03-10] MEDS: LORATADINE 10 MG TABLET PO SCH (11:01)
[2020-03-10] MEDS: AZITHROMYCIN 250 MG TABLET PO SCH (11:01)
[2020-03-10] MEDS: traZODone 50 MG TABLET PO SCH (11:02)
[2020-03-10] MEDS: predniSONE 20 MG TABLET PO SCH (11:13)
[2020-03-10] MEDS: BACLOFEN 10 MG TABLET PO PRN (11:14)
[2020-03-10] MEDS: FLUTICASONE 50 MCG NASAL SPRAY 16 GM BOTTLE BOTH NARES SCH (11:17)
[2020-03-10] MEDS: MORPHINE ER 30 MG TABLET PO SCH ×2 (11:26→21:39)
[2020-03-10 12:53] LABS: Calcium 8.9 MG/DL (8.5-10.1); Osmolality,Calculated 287.4 MOS/KG (273-304)
[2020-03-10] MEDS: cefTRIAXone 1,000 MG in SYRINGE 1 EACH IV SCH (15:13)
[2020-03-10] MEDS: METHYLNALTREXONE 12 MG/0.6 ML VIAL SUBCUT SCH (15:19)
[2020-03-10] MEDS: SIMVASTATIN 20 MG TABLET PO SCH (21:40)
[2020-03-10] MEDS: DONEPEZIL 5 MG TABLET PO SCH (21:40)
[2020-03-11] MEDS: BACLOFEN 10 MG TABLET PO PRN ×3 (00:01→21:33)
[2020-03-11] MEDS: ZALEPLON 5 MG CAPSULE PO PRN ×2 (00:02→21:33)
[2020-03-11] MEDS: ALBUTEROL/IPRATROPIUM 3 ML NEB RESP TX SCH ×4 (01:33→19:21)
[2020-03-11] MEDS: ACETAMINOPHEN 325 MG TABLET PO PRN (03:20)
[2020-03-11 06:34] LABS: Calcium 9.3 MG/DL (8.5-10.1); Osmolality,Calculated 283.4 MOS/KG (273-304)
[2020-03-11 07:29] LABS: Eosinophils % 0.2 % (0.00-10.9); Hematocrit 34.5 VOL% (35.7-47.0); Hemoglobin 10.3 GM/DL (12.0-16.0); Immature Granulocytes % 0.2 %; Immature Granulocytes Absolute 0.01 #; Lymphocytes # 0.5 10*3/uL (1.4-4.0); Lymphocytes % 7.8 % (21.3-54.2); Mean Corpuscular HGB Conc 29.9 GM/DL (32-36); Mean Corpuscular Volume 82.3 FL (87-102); Mean Platelet Volume 8.7 FL (9.6-12.0); Monocytes % 2.7 % (1.7-12.7); Neutrophils % 89.1 % (38.7-73.9); Platelet Count 203 T/CUMM (130-400); Red Blood Count 4.19 MC/CUMM (3.8-5.5); Red Cell Distribution Width 19.6 % (9.3-17.3); White Blood Count 6.6 T/CUMM (4-12)
[2020-03-11] MEDS: MORPHINE ER 30 MG TABLET PO SCH ×2 (08:54→21:33)
[2020-03-11] MEDS: traZODone 50 MG TABLET PO SCH (08:55)
[2020-03-11] MEDS: AZITHROMYCIN 250 MG TABLET PO SCH (08:55)
[2020-03-11] MEDS: LORATADINE 10 MG TABLET PO SCH (08:55)
[2020-03-11] MEDS: CHOLECALCIFEROL 1,000 UNIT TABLET PO SCH (08:55)
[2020-03-11] MEDS: GABAPENTIN 600 MG TABLET PO SCH ×2 (08:56→21:38)
[2020-03-11] MEDS: PANTOPRAZOLE 40 MG TABLET PO SCH (08:56)
[2020-03-11] MEDS: predniSONE 20 MG TABLET PO SCH (08:56)
[2020-03-11] MEDS: INSULIN REGULAR 100 UNIT/ML SUBCUT SCH ×4 (08:57→21:34)
[2020-03-11] MEDS: FLUTICASONE 50 MCG NASAL SPRAY 16 GM BOTTLE BOTH NARES SCH (08:59)
[2020-03-11] MEDS: MORPHINE IR 15 MG TABLET PO PRN (10:36)
[2020-03-11] MEDS: cefTRIAXone 1,000 MG in SYRINGE 1 EACH IV SCH (13:39)
[2020-03-11] MEDS: POLYETHYLENE GLYCOL POWDER 17 GM PACK PO SCH (13:39)
[2020-03-11] MEDS: SIMVASTATIN 20 MG TABLET PO SCH (21:33)
[2020-03-11] MEDS: DONEPEZIL 5 MG TABLET PO SCH (21:33)
[2020-03-12] MEDS: ALBUTEROL/IPRATROPIUM 3 ML NEB RESP TX SCH ×4 (00:57→20:15)
[2020-03-12] MEDS: MORPHINE IR 15 MG TABLET PO PRN ×2 (03:00→17:48)
[2020-03-12 07:07] LABS: Basophils % 0.2 % (0.0-0.8); Eosinophils # 0.1 10*3/uL (0.0-0.87); Eosinophils % 2.1 % (0.00-10.9); Hematocrit 35.9 VOL% (35.7-47.0); Hemoglobin 10.7 GM/DL (12.0-16.0); Immature Granulocytes % 0.3 %; Immature Granulocytes Absolute 0.02 #; Lymphocytes # 0.6 10*3/uL (1.4-4.0); Lymphocytes % 9.7 % (21.3-54.2); Mean Corpuscular HGB Conc 29.8 GM/DL (32-36); Mean Corpuscular Volume 82.2 FL (87-102); Mean Platelet Volume 8.9 FL (9.6-12.0); Monocytes % 2.1 % (1.7-12.7); Neutrophils % 85.6 % (38.7-73.9); Platelet Count 193 T/CUMM (130-400); Red Blood Count 4.37 MC/CUMM (3.8-5.5); Red Cell Distribution Width 19.8 % (9.3-17.3); White Blood Count 6.6 T/CUMM (4-12)
[2020-03-12 07:31] LABS: Calcium 9.2 MG/DL (8.5-10.1); Osmolality,Calculated 282.1 MOS/KG (273-304)
[2020-03-12] MEDS: INSULIN REGULAR 100 UNIT/ML SUBCUT SCH ×4 (08:43→22:18)
[2020-03-12] MEDS: METHYLNALTREXONE 12 MG/0.6 ML VIAL SUBCUT SCH (09:13)
[2020-03-12] MEDS: GABAPENTIN 600 MG TABLET PO SCH ×2 (09:13→22:20)
[2020-03-12] MEDS: FLUTICASONE 50 MCG NASAL SPRAY 16 GM BOTTLE BOTH NARES SCH (09:13)
[2020-03-12] MEDS: CHOLECALCIFEROL 1,000 UNIT TABLET PO SCH (09:13)
[2020-03-12] MEDS: MORPHINE ER 30 MG TABLET PO SCH ×2 (09:13→22:19)
[2020-03-12] MEDS: predniSONE 20 MG TABLET PO SCH (09:13)
[2020-03-12] MEDS: POLYETHYLENE GLYCOL POWDER 17 GM PACK PO SCH (09:13)
[2020-03-12] MEDS: PANTOPRAZOLE 40 MG TABLET PO SCH (09:13)
[2020-03-12] MEDS: traZODone 50 MG TABLET PO SCH (09:13)
[2020-03-12] MEDS ORDERED: SODIUM PHOSPHATE ENEMA 133 ML BOTTLE RECTAL ONE (09:37)
[2020-03-12] MEDS: cefTRIAXone 1,000 MG in SYRINGE 1 EACH IV SCH (13:49)
[2020-03-12] MEDS: diphenhydrAMINE CAP 25 MG CAPSULE PO PRN ×2 (16:38→22:20)
[2020-03-12] MEDS: ZALEPLON 5 MG CAPSULE PO PRN (22:18)
[2020-03-12] MEDS: SIMVASTATIN 20 MG TABLET PO SCH (22:19)
[2020-03-12] MEDS: DONEPEZIL 5 MG TABLET PO SCH (22:19)
[2020-03-12] MEDS: BISACODYL 5 MG TABLET PO PRN (22:19)
[2020-03-12] MEDS: BACLOFEN 10 MG TABLET PO PRN (22:19)
[2020-03-13] MEDS: ALBUTEROL/IPRATROPIUM 3 ML NEB RESP TX SCH ×4 (01:44→19:41)
[2020-03-13 06:35] LABS: Calcium 9.1 MG/DL (8.5-10.1); Osmolality,Calculated 279.2 MOS/KG (273-304)
[2020-03-13 06:46] LABS: Basophils % 0.1 % (0.0-0.8); Eosinophils # 0.2 10*3/uL (0.0-0.87); Eosinophils % 2.7 % (0.00-10.9); Hematocrit 35.7 VOL% (35.7-47.0); Hemoglobin 10.6 GM/DL (12.0-16.0); Immature Granulocytes % 0.7 %; Immature Granulocytes Absolute 0.05 #; Lymphocytes # 0.8 10*3/uL (1.4-4.0); Lymphocytes % 12.1 % (21.3-54.2); Mean Corpuscular HGB Conc 29.7 GM/DL (32-36); Mean Corpuscular Volume 82.6 FL (87-102); Mean Platelet Volume 8.8 FL (9.6-12.0); Monocytes % 2.9 % (1.7-12.7); Neutrophils % 81.5 % (38.7-73.9); Platelet Count 157 T/CUMM (130-400); Red Blood Count 4.32 MC/CUMM (3.8-5.5); Red Cell Distribution Width 19.5 % (9.3-17.3); White Blood Count 6.8 T/CUMM (4-12)
[2020-03-13] MEDS: INSULIN REGULAR 100 UNIT/ML SUBCUT SCH ×4 (08:46→21:41)
[2020-03-13] MEDS: GABAPENTIN 600 MG TABLET PO SCH ×2 (08:47→20:36)
[2020-03-13] MEDS: BACLOFEN 10 MG TABLET PO PRN (08:47)
[2020-03-13] MEDS: predniSONE 20 MG TABLET PO SCH (08:47)
[2020-03-13] MEDS: POLYETHYLENE GLYCOL POWDER 17 GM PACK PO SCH (08:47)
[2020-03-13] MEDS: MORPHINE ER 30 MG TABLET PO SCH ×2 (08:48→20:35)
[2020-03-13] MEDS: FLUTICASONE 50 MCG NASAL SPRAY 16 GM BOTTLE BOTH NARES SCH (08:48)
[2020-03-13] MEDS: CHOLECALCIFEROL 1,000 UNIT TABLET PO SCH (08:48)
[2020-03-13] MEDS: PANTOPRAZOLE 40 MG TABLET PO SCH (08:48)
[2020-03-13] MEDS: traZODone 50 MG TABLET PO SCH (08:48)
[2020-03-13] MEDS: MORPHINE IR 15 MG TABLET PO PRN (12:40)
[2020-03-13] MEDS: cefTRIAXone 1,000 MG in SYRINGE 1 EACH IV SCH (16:44)
[2020-03-13] MEDS: ZALEPLON 5 MG CAPSULE PO PRN (20:35)
[2020-03-13] MEDS: DONEPEZIL 5 MG TABLET PO SCH (20:36)
[2020-03-13] MEDS: SIMVASTATIN 20 MG TABLET PO SCH (20:36)
[2020-03-14] MEDS: MORPHINE IR 15 MG TABLET PO PRN ×2 (02:33→13:57)
[2020-03-14] MEDS: ALBUTEROL/IPRATROPIUM 3 ML NEB RESP TX SCH ×3 (02:40→14:07)
[2020-03-14 06:48] LABS: Basophils % 0.2 % (0.0-0.8); Eosinophils # 0.2 10*3/uL (0.0-0.87); Eosinophils % 4.1 % (0.00-10.9); Hematocrit 35.5 VOL% (35.7-47.0); Hemoglobin 10.5 GM/DL (12.0-16.0); Immature Granulocytes % 0.7 %; Immature Granulocytes Absolute 0.03 #; Lymphocytes # 0.9 10*3/uL (1.4-4.0); Lymphocytes % 19.4 % (21.3-54.2); Mean Corpuscular HGB Conc 29.6 GM/DL (32-36); Mean Corpuscular Volume 82.6 FL (87-102); Mean Platelet Volume 9.2 FL (9.6-12.0); Monocytes % 6.4 % (1.7-12.7); Neutrophils % 69.2 % (38.7-73.9); Platelet Count 137 T/CUMM (130-400); Red Cell Distribution Width 19.3 % (9.3-17.3); White Blood Count 4.4 T/CUMM (4-12)
[2020-03-14 07:14] LABS: Albumin 2.7 G/DL (3.4-5.0); Bilirubin,Total 0.6 MG/DL (0.2-1.0); Calcium 9.5 MG/DL (8.5-10.1); Osmolality,Calculated 279.1 MOS/KG (273-304); Total Protein 7.2 G/DL (6.4-8.3)
[2020-03-14] MEDS ORDERED: PALONOSETRON 0.25 MG/5 ML VIAL IV ONE (09:09)
[2020-03-14] MEDS ORDERED: ATROPINE 0.4 MG/1 ML VIAL IV ONE (09:10)
[2020-03-14] MEDS: INSULIN REGULAR 100 UNIT/ML SUBCUT SCH ×2 (09:31→13:41)
[2020-03-14] MEDS: MORPHINE ER 30 MG TABLET PO SCH (09:32)
[2020-03-14] MEDS: predniSONE 20 MG TABLET PO SCH (09:32)
[2020-03-14] MEDS: GABAPENTIN 600 MG TABLET PO SCH (09:32)
[2020-03-14] MEDS: traZODone 50 MG TABLET PO SCH (09:32)
[2020-03-14] MEDS: CHOLECALCIFEROL 1,000 UNIT TABLET PO SCH (09:32)
[2020-03-14] MEDS: PANTOPRAZOLE 40 MG TABLET PO SCH (09:33)
[2020-03-14] MEDS: POLYETHYLENE GLYCOL POWDER 17 GM PACK PO SCH (09:33)
[2020-03-14] MEDS: BACLOFEN 10 MG TABLET PO PRN (09:33)
[2020-03-14] MEDS: FLUTICASONE 50 MCG NASAL SPRAY 16 GM BOTTLE BOTH NARES SCH (09:34)
[2020-03-14] MEDS ORDERED: FOSAPREPITANT 150 MG in SODIUM CHLORIDE 0.9% 100 ML IV ONE (10:00)
[2020-03-14] MEDS ORDERED: DEXAMETHASONE INJ 10 MG in SODIUM CHLORIDE 0.9% 50 ML IV ONE (10:00)
[2020-03-14] MEDS ORDERED: IRINOTECAN 250 MG in DEXTROSE 5% 250 ML IV ONE (10:00)
[2020-03-14 12:05] VITALS: BP 125/59
[2020-03-14] MEDS ORDERED: HEPARIN LOCK FLUSH 500 UNIT/5 ML SYRINGE IV ONE (13:46)
== END 2020-03-14 13:05 | disposition home health service (06) | DRG 180 ==
LOC: N.4E → SUATTDRO 11:39
PROVIDERS: ADMIT Internal Medicine; ATTEND Internal Medicine
PROC: IRTHORA (2020-03-10 08:30)

== ENCOUNTER 2020-03-20 12:37 | Inpatient (IN) ==
[2020-03-20] MEDS ORDERED: SODIUM CHLORIDE 0.9% 1,000 ML IV STA (16:12)
[2020-03-20] MEDS ORDERED: MORPHINE 4 MG/1 ML VIAL IV STA ×2 (17:35→19:46)
[2020-03-20 18:20] LABS: Bilirubin,Urine Negative (Negative); Blood, Urine Negative (Negative); Glucose,Urine (UA) Negative (Negative); Hyaline Casts,Urine 2 /LPF (0-3); Ketones,Urine Negative (Negative); Mucus,Urine Occasional /LPF (Occasional); Nitrite,Urine Negative (Negative); Protein,Urine 30 MG/DL; RBC,Urine 1 /HPF (0-4); Squamous Epithelial Cell,Urine Few /HPF (0-10); Urine Appearance CLOUDY (Clear); Urine Color Amber (Yellow); Urine Specific Gravity 1.019 (1.001-1.035); Urine Urobilinogen < 2.0 EU/DL (0.2-1.0); WBC,Urine 3 /HPF (0-6)
[2020-03-20 18:25] LABS: Basophils % 0.5 % (0.0-0.8); Eosinophils # 0.2 10*3/uL (0.0-0.87); Eosinophils % 8.3 % (0.00-10.9); Hematocrit 32.4 VOL% (35.7-47.0); Hemoglobin 9.7 GM/DL (12.0-16.0); Immature Granulocytes % 1.4 %; Immature Granulocytes Absolute 0.03 #; Lymphocytes # 0.5 10*3/uL (1.4-4.0); Lymphocytes % 24.3 % (21.3-54.2); Mean Corpuscular HGB Conc 29.9 GM/DL (32-36); Mean Corpuscular Volume 81.6 FL (87-102); Mean Platelet Volume 9.3 FL (9.6-12.0); Monocytes % 11.9 % (1.7-12.7); Neutrophils % 53.6 % (38.7-73.9); Platelet Count 97 T/CUMM (130-400); Red Blood Count 3.97 MC/CUMM (3.8-5.5); Red Cell Distribution Width 18.9 % (9.3-17.3); White Blood Count 2.2 T/CUMM (4-12)
[2020-03-20 18:48] LABS: Albumin 2.4 G/DL (3.4-5.0); Bilirubin,Total 0.5 MG/DL (0.2-1.0); Calcium 8.1 MG/DL (8.5-10.1); Osmolality,Calculated 272.1 MOS/KG (273-304); Total Protein 6.5 G/DL (6.4-8.3)
[2020-03-20 18:51] LABS: Anisocytosis Slight; Atypical Lymphocytes 1+; Band Neutrophils 21 % (0-10); Eosinophils 11 % (0-10); Hypochromasia 1+; Lymphocytes 18 % (20-55); Metamyelocytes 1 %; Microcytosis Slight; Platelet Estimate Decreased; Segmented Neutrophils 39 % (50-85); Total Cells Counted 100
[2020-03-20] MEDS ORDERED: PIPERACILLIN/TAZOBACTAM 3,375 MG in SODIUM CHLORIDE 0.9% 100 ML IV STA (18:55)
[2020-03-20] MEDS ORDERED: PIPERACILLIN/TAZOBACTAM 3,375 MG VIAL IV ONE (19:29)
[2020-03-20] MEDS ORDERED: ACETAMINOPHEN 325 MG TABLET PO PRN (20:06)
[2020-03-20] MEDS ORDERED: ONDANSETRON 4 MG/2 ML VIAL IV PRN (20:06)
[2020-03-20] MEDS ORDERED: MAGNESIUM SULF RIDER 2 GM in PREMIX 1 EACH IV PRN (20:14)
[2020-03-20] MEDS ORDERED: POTASSIUM CHLORIDE RIDER 10 MEQ in PREMIX 1 EACH IV PRN (20:14)
[2020-03-20] MEDS ORDERED: MAGNESIUM SULF RIDER 4 GM in PREMIX 1 EACH IV PRN (20:14)
[2020-03-20] MEDS ORDERED: SODIUM CHLORIDE 0.9% 1,000 ML IV SCH (20:30)
[2020-03-20] MEDS ORDERED: MAGNESIUM SULF RIDER 50 ML IV ONE (20:45)
[2020-03-20] MEDS ORDERED: FLUCONAZOLE 150 MG TABLET PO ONE (20:48)
[2020-03-20] MEDS ORDERED: ALBUTEROL/IPRATROPIUM 3 ML NEB RESP TX PRN (21:14)
[2020-03-20] MEDS: DONEPEZIL 5 MG TABLET PO SCH (21:55)
[2020-03-20] MEDS: GABAPENTIN 600 MG TABLET PO SCH (21:55)
[2020-03-20] MEDS: CLOPIDOGREL 75 MG TABLET PO SCH (21:55)
[2020-03-20] MEDS: SIMVASTATIN 20 MG TABLET PO SCH (21:55)
[2020-03-20] MEDS: MICONAZOLE 2% CREAM 57 GM TUBE TOP SCH (21:55)
[2020-03-20] MEDS: traZODone 50 MG TABLET PO SCH (21:55)
[2020-03-20] MEDS: MORPHINE ER 30 MG TABLET PO SCH (22:31)
[2020-03-21] MEDS: PIPERACILLIN/TAZOBACTAM 3,375 MG in SODIUM CHLORIDE 0.9% 100 ML IV SCH ×3 (03:10→18:29)
[2020-03-21 04:47] LABS: Basophils % 0.5 % (0.0-0.8); Eosinophils # 0.2 10*3/uL (0.0-0.87); Eosinophils % 8.8 % (0.00-10.9); Hematocrit 32.4 VOL% (35.7-47.0); Hemoglobin 9.8 GM/DL (12.0-16.0); Immature Granulocytes % 0.9 %; Immature Granulocytes Absolute 0.02 #; Lymphocytes # 0.6 10*3/uL (1.4-4.0); Lymphocytes % 28.7 % (21.3-54.2); Mean Corpuscular HGB Conc 30.2 GM/DL (32-36); Mean Corpuscular Volume 81.2 FL (87-102); Mean Platelet Volume 10.3 FL (9.6-12.0); Monocytes % 8.8 % (1.7-12.7); Neutrophils % 52.3 % (38.7-73.9); Platelet Count 103 T/CUMM (130-400); Red Blood Count 3.99 MC/CUMM (3.8-5.5); Red Cell Distribution Width 18.7 % (9.3-17.3); White Blood Count 2.2 T/CUMM (4-12)
[2020-03-21 05:11] LABS: Atypical Lymphocytes Few; Band Neutrophils 6 % (0-10); Eosinophils 7 % (0-10); Hypochromasia 1+; Lymphocytes 27 % (20-55); Microcytosis 1+; Platelet Estimate Decreased; Segmented Neutrophils 49 % (50-85); Total Cells Counted 100
[2020-03-21] MEDS: MORPHINE IR 15 MG TABLET PO PRN ×2 (05:13→15:02)
[2020-03-21 05:15] LABS: Albumin 2.3 G/DL (3.4-5.0); Bilirubin,Total 1.3 MG/DL (0.2-1.0); Calcium 8.5 MG/DL (8.5-10.1); Osmolality,Calculated 265.5 MOS/KG (273-304); Total Protein 6.4 G/DL (6.4-8.3)
[2020-03-21] MEDS ORDERED: guaiFENesin 200 MG/10 ML UDCUP PO PRN (08:56)
[2020-03-21] MEDS ORDERED: MAGNESIUM HYDROXIDE SUSP 30 ML UDCUP PO PRN (08:56)
[2020-03-21] MEDS ORDERED: ALUMINUM/MAGNES/SIMETH MAX STR 30 ML UDCUP PO PRN (08:56)
[2020-03-21] MEDS ORDERED: TEMAZEPAM 7.5 MG CAPSULE PO PRN (08:56)
[2020-03-21] MEDS ORDERED: ALPRAZolam 0.25 MG TABLET PO PRN (08:56)
[2020-03-21] MEDS ORDERED: MYLANTA/LIDO VISC 2:1 300 ML BOTTLE SWISH/SPIT PRN (08:56)
[2020-03-21] MEDS ORDERED: MYLANTA/LIDO VISC 2:1 300 ML BOTTLE SWISH/SWAL PRN (08:56)
[2020-03-21] MEDS ORDERED: ACETAMINOPHEN 325 MG TABLET PO PRN (08:56)
[2020-03-21] MEDS ORDERED: diphenhydrAMINE CAP 25 MG CAPSULE PO PRN (08:56)
[2020-03-21] MEDS ORDERED: LACTULOSE 20 GM/30 ML UDCUP PO PRN (08:56)
[2020-03-21] MEDS ORDERED: traMADol 50 MG TABLET PO PRN (08:56)
[2020-03-21] MEDS ORDERED: PROMETHAZINE INJ 25 MG in SODIUM CHLORIDE 0.9% 50 ML IV PRN (08:56)
[2020-03-21] MEDS ORDERED: LOPERAMIDE 2 MG CAPSULE PO PRN ×2 (08:56)
[2020-03-21] MEDS ORDERED: ONDANSETRON 4 MG/2 ML VIAL IV PRN (08:56)
[2020-03-21] MEDS ORDERED: chlorproMAZINE 25 MG TABLET PO PRN (08:56)
[2020-03-21] MEDS: MORPHINE ER 30 MG TABLET PO SCH ×2 (09:11→20:47)
[2020-03-21] MEDS: PANTOPRAZOLE 40 MG TABLET PO SCH (09:12)
[2020-03-21] MEDS: GABAPENTIN 600 MG TABLET PO SCH ×2 (09:12→20:46)
[2020-03-21] MEDS: LORATADINE 10 MG TABLET PO SCH (09:12)
[2020-03-21] MEDS: CLOPIDOGREL 75 MG TABLET PO SCH ×2 (09:12→20:47)
[2020-03-21] MEDS: CHLORTHALIDONE 25 MG TABLET PO SCH (09:13)
[2020-03-21] MEDS: CHOLECALCIFEROL 1,000 UNIT TABLET PO SCH (09:13)
[2020-03-21] MEDS: FLUTICASONE 50 MCG NASAL SPRAY 16 GM BOTTLE BOTH NARES SCH (09:13)
[2020-03-21] MEDS: SKIN HEALING OINT (AQUAPHOR) 50 GM TUBE TOP PRN (09:14)
[2020-03-21] MEDS: FILGRASTIM-SNDZ 480 MCG/0.8 ML SYRINGE SUBCUT SCH (09:18)
[2020-03-21] MEDS: ALBUTEROL 2.5 MG/3 ML NEB RESP TX SCH (10:00)
[2020-03-21] MEDS: MICONAZOLE 2% CREAM 57 GM TUBE TOP SCH ×2 (15:04→20:46)
[2020-03-21] MEDS: TRIAMCINOLONE 0.025% CREAM 15 GM TUBE TOP SCH (20:45)
[2020-03-21] MEDS: traZODone 50 MG TABLET PO SCH (20:47)
[2020-03-21] MEDS: SIMVASTATIN 20 MG TABLET PO SCH (20:47)
[2020-03-21] MEDS: DONEPEZIL 5 MG TABLET PO SCH (20:47)
[2020-03-21] MEDS: POTASSIUM CHLORIDE RIDER 20 MEQ in PREMIX 1 EACH IV PRN (22:53)
[2020-03-22] MEDS: POTASSIUM CHLORIDE RIDER 20 MEQ in PREMIX 1 EACH IV PRN (00:53)
[2020-03-22] MEDS: MORPHINE IR 15 MG TABLET PO PRN (01:58)
[2020-03-22] MEDS: PIPERACILLIN/TAZOBACTAM 3,375 MG in SODIUM CHLORIDE 0.9% 100 ML IV SCH ×3 (02:54→20:50)
[2020-03-22] MEDS: ALBUTEROL 2.5 MG/3 ML NEB RESP TX SCH (07:02)
[2020-03-22 07:05] LABS: Albumin 2.3 G/DL (3.4-5.0); Bilirubin,Total 0.5 MG/DL (0.2-1.0); Calcium 8.8 MG/DL (8.5-10.1); Osmolality,Calculated 260.8 MOS/KG (273-304); Total Protein 6.8 G/DL (6.4-8.3)
[2020-03-22 08:01] LABS: Basophils % 0.7 % (0.0-0.8); Eosinophils # 0.2 10*3/uL (0.0-0.87); Eosinophils % 4.4 % (0.00-10.9); Hematocrit 31.2 VOL% (35.7-47.0); Hemoglobin 9.5 GM/DL (12.0-16.0); Immature Granulocytes % 8.5 %; Immature Granulocytes Absolute 0.46 #; Lymphocytes # 0.9 10*3/uL (1.4-4.0); Lymphocytes % 15.9 % (21.3-54.2); Mean Corpuscular HGB Conc 30.4 GM/DL (32-36); Mean Corpuscular Volume 80.2 FL (87-102); Mean Platelet Volume 10.4 FL (9.6-12.0); Monocytes % 10.9 % (1.7-12.7); Neutrophils % 59.6 % (38.7-73.9); Platelet Count 123 T/CUMM (130-400); Red Blood Count 3.89 MC/CUMM (3.8-5.5); White Blood Count 5.4 T/CUMM (4-12)
[2020-03-22 08:08] LABS: Atypical Lymphocytes Few; Band Neutrophils 11 % (0-10); Eosinophils 7 % (0-10); Hypochromasia 1+; Lymphocytes 18 % (20-55); Microcytosis Slight; Ovalocytes Slight; Platelet Estimate Normal; Segmented Neutrophils 53 % (50-85); Total Cells Counted 100
[2020-03-22] MEDS: MORPHINE ER 30 MG TABLET PO SCH ×2 (08:23→20:51)
[2020-03-22] MEDS: CHOLECALCIFEROL 1,000 UNIT TABLET PO SCH (08:24)
[2020-03-22] MEDS: CLOPIDOGREL 75 MG TABLET PO SCH ×2 (08:24→20:51)
[2020-03-22] MEDS: GABAPENTIN 600 MG TABLET PO SCH ×2 (08:24→20:51)
[2020-03-22] MEDS: PANTOPRAZOLE 40 MG TABLET PO SCH (08:24)
[2020-03-22] MEDS: CHLORTHALIDONE 25 MG TABLET PO SCH (08:24)
[2020-03-22] MEDS: LORATADINE 10 MG TABLET PO SCH (08:24)
[2020-03-22] MEDS: SKIN HEALING OINT (AQUAPHOR) 50 GM TUBE TOP PRN ×2 (08:25→20:55)
[2020-03-22] MEDS: TRIAMCINOLONE 0.025% CREAM 15 GM TUBE TOP SCH ×2 (08:25→20:56)
[2020-03-22] MEDS: MICONAZOLE 2% CREAM 57 GM TUBE TOP SCH ×2 (08:25→20:55)
[2020-03-22] MEDS: FLUTICASONE 50 MCG NASAL SPRAY 16 GM BOTTLE BOTH NARES SCH (08:37)
[2020-03-22] MEDS: FILGRASTIM-SNDZ 480 MCG/0.8 ML SYRINGE SUBCUT SCH (08:37)
[2020-03-22] MEDS: traZODone 50 MG TABLET PO SCH (20:51)
[2020-03-22] MEDS: DONEPEZIL 5 MG TABLET PO SCH (20:51)
[2020-03-22] MEDS: SIMVASTATIN 20 MG TABLET PO SCH (20:51)
[2020-03-23] MEDS: MORPHINE IR 15 MG TABLET PO PRN (01:10)
[2020-03-23] MEDS: PIPERACILLIN/TAZOBACTAM 3,375 MG in SODIUM CHLORIDE 0.9% 100 ML IV SCH ×2 (02:27→10:52)
[2020-03-23] MEDS: ALBUTEROL 2.5 MG/3 ML NEB RESP TX SCH (07:05)
[2020-03-23] MEDS: PANTOPRAZOLE 40 MG TABLET PO SCH (08:08)
[2020-03-23] MEDS: CHOLECALCIFEROL 1,000 UNIT TABLET PO SCH (08:08)
[2020-03-23] MEDS: MORPHINE ER 30 MG TABLET PO SCH (08:09)
[2020-03-23] MEDS: LORATADINE 10 MG TABLET PO SCH (08:09)
[2020-03-23] MEDS: CLOPIDOGREL 75 MG TABLET PO SCH (08:09)
[2020-03-23] MEDS: FLUTICASONE 50 MCG NASAL SPRAY 16 GM BOTTLE BOTH NARES SCH (08:09)
[2020-03-23] MEDS: GABAPENTIN 600 MG TABLET PO SCH (08:09)
[2020-03-23] MEDS: CHLORTHALIDONE 25 MG TABLET PO SCH (08:09)
[2020-03-23] MEDS: SKIN HEALING OINT (AQUAPHOR) 50 GM TUBE TOP PRN (08:10)
[2020-03-23] MEDS: TRIAMCINOLONE 0.025% CREAM 15 GM TUBE TOP SCH ×2 (08:10→08:11)
[2020-03-23] MEDS: MICONAZOLE 2% CREAM 57 GM TUBE TOP SCH (08:12)
[2020-03-23 11:46] VITALS: BP 108/49
[2020-03-23] MEDS ORDERED: HEPARIN LOCK FLUSH 500 UNIT/5 ML SYRINGE IV ONE ×2 (14:48→14:51)
== END 2020-03-23 16:05 | disposition home or self-care (01) | DRG 194 ==
LOC: N.ED 12:37 → N.EDINP 19:25 → N.4E 03-21 08:12
PROVIDERS: ADMIT Family Medicine; ATTEND Family Medicine

== ENCOUNTER 2020-04-16 22:56 | Inpatient (IN) ==
[2020-04-16] MEDS ORDERED: LORazepam 2 MG/1 ML VIAL ONE (23:06)
[2020-04-16] MEDS ORDERED: LORazepam 2 MG/1 ML VIAL IV STA (23:09)
[2020-04-16] MEDS ORDERED: HYDROmorphone 2 MG/1 ML VIAL ONE (23:11)
[2020-04-16] MEDS ORDERED: SODIUM CHLORIDE 0.9% 1,000 ML IV STA ×2 (23:14→23:15)
[2020-04-16] MEDS ORDERED: HYDROmorphone 2 MG/1 ML VIAL IV STA (23:15)
[2020-04-16 23:24] LABS: Eosinophils % 0.1 % (0.00-10.9); Hemoglobin 9.4 GM/DL (12.0-16.0); Immature Granulocytes % 3.7 %; Red Blood Count 3.83 MC/CUMM (3.8-5.5)
[2020-04-16 23:40] LABS: Albumin 2.9 G/DL (3.4-5.0); Bilirubin,Total 0.5 MG/DL (0.2-1.0); Calcium 9.2 MG/DL (8.5-10.1); Total Protein 8.3 G/DL (6.4-8.3)
[2020-04-16 23:44] LABS: Basophils # 0.1 10*3/uL (0.0-0.2); Basophils % 0.5 % (0.0-0.8); Hematocrit 31.9 VOL% (35.7-47.0); Lymphocytes # 1.5 10*3/uL (1.4-4.0); Lymphocytes % 11.3 % (21.3-54.2); Mean Corpuscular HGB Conc 29.5 GM/DL (32-36); Mean Corpuscular Volume 83.3 FL (87-102); Mean Platelet Volume 9.1 FL (9.6-12.0); Monocytes % 12.7 % (1.7-12.7); NRBC # 0.05 10*3/uL; Neutrophils % 71.7 % (38.7-73.9); Platelet Count 343 T/CUMM (130-400); Red Cell Distribution Width 21.3 % (9.3-17.3); White Blood Count 13.4 T/CUMM (4-12)
[2020-04-16 23:51] LABS: Bacteria,Urine Occasional /HPF (Few); Bilirubin,Urine Negative (Negative); Blood, Urine Negative (Negative); Glucose,Urine (UA) Negative (Negative); Hyaline Casts,Urine 4 /LPF (0-3); Ketones,Urine Negative (Negative); Mucus,Urine Occasional /LPF (Occasional); Nitrite,Urine Negative (Negative); Protein,Urine 30 MG/DL; RBC,Urine 2 /HPF (0-4); Squamous Epithelial Cell,Urine Occasional /HPF (0-10); Urine Appearance Slightly Hazy (Clear); Urine Color Yellow (Yellow); Urine Specific Gravity 1.012 (1.001-1.035); WBC,Urine 3 /HPF (0-6)
[2020-04-17] MEDS ORDERED: ASPIRIN CHEW 81 MG TABLET PO STA (00:12)
[2020-04-17] MEDS ORDERED: ASPIRIN 300 MG SUPP RECTAL STA (00:20)
[2020-04-17] MEDS ORDERED: ASPIRIN 300 MG SUPP RECTAL ONE (00:21)
[2020-04-17] MEDS ORDERED: DOCUSATE SODIUM 100 MG CAPSULE PO PRN (04:44)
[2020-04-17] MEDS ORDERED: ACETAMINOPHEN 325 MG TABLET PO PRN (04:44)
[2020-04-17] MEDS ORDERED: GLUCAGON 1 MG VIAL IM PRN (04:44)
[2020-04-17] MEDS ORDERED: DEXTROSE 50% 25 GM/50 ML VIAL IV PRN (04:44)
[2020-04-17] MEDS ORDERED: ONDANSETRON 4 MG/2 ML VIAL IV PRN (04:44)
[2020-04-17] MEDS ORDERED: ACETAMINOPHEN 650 MG SUPP RECTAL PRN (04:50)
[2020-04-17] MEDS ORDERED: ALBUTEROL/IPRATROPIUM 3 ML NEB RESP TX PRN (05:25)
[2020-04-17] MEDS ORDERED: LEVOFLOXACIN INJ 750 MG in PREMIX 1 EACH IV SCH (05:30)
[2020-04-17] MEDS ORDERED: DEXAMETHASONE 4 MG/1 ML VIAL IV ONE (06:00)
[2020-04-17] MEDS: SODIUM CHLORIDE 0.9% 1,000 ML IV SCH ×2 (06:06→17:20)
[2020-04-17] MEDS: ENOXAPARIN 100 MG/ML SYRINGE SUBCUT SCH (06:29)
[2020-04-17] MEDS ORDERED: ENOXAPARIN 120 MG/0.8 ML SYRINGE SUBCUT SCH (06:30)
[2020-04-17] MEDS: HYDROmorphone 2 MG/1 ML VIAL IV PRN ×2 (06:33→17:20)
[2020-04-17] MEDS: DOXYCYCLINE HYCLATE INJ 100 MG in SODIUM CHLORIDE 0.9% 100 ML IV SCH ×2 (08:44→21:45)
[2020-04-17] MEDS ORDERED: methylPREDNISolone SOD SUC 40 MG/1 ML VIAL IV ONE (08:54)
[2020-04-17] MEDS ORDERED: HYDROmorphone 2 MG/1 ML VIAL IV ONE (08:55)
[2020-04-17] MEDS ORDERED: PANTOPRAZOLE 40 MG VIAL IV SCH (09:00)
[2020-04-17] MEDS ORDERED: DEXAMETHASONE 10 MG/1 ML VIAL IV SCH (09:00)
[2020-04-17] MEDS ORDERED: INFLUENZA VIRUS VACCINE 0.5 ML SYRINGE IM ONE (09:00)
[2020-04-17] MEDS ORDERED: MORPHINE IR 15 MG TABLET PO PRN (09:01)
[2020-04-17] MEDS: ALBUTEROL/IPRATROPIUM 3 ML NEB RESP TX SCH ×3 (10:15→21:48)
[2020-04-17] MEDS: levETIRAcetam LIQUID 100 MG/ML 30 ML/BOTTLE PO SCH ×2 (10:51→21:45)
[2020-04-17] MEDS: MORPHINE ER 30 MG TABLET PO SCH ×2 (10:51→21:45)
[2020-04-17] MEDS: DEXAMETHASONE 4 MG/1 ML VIAL IV SCH ×2 (14:22→21:45)
[2020-04-17] MEDS: NEBIVOLOL 5 MG TABLET PO SCH (17:20)
[2020-04-17] MEDS ORDERED: ATORVASTATIN 40 MG TABLET PO SCH (21:00)
[2020-04-18] MEDS: ALBUTEROL/IPRATROPIUM 3 ML NEB RESP TX SCH ×5 (00:11→15:08)
[2020-04-18] MEDS: DEXAMETHASONE 4 MG/1 ML VIAL IV SCH ×3 (04:03→16:09)
[2020-04-18] MEDS: HYDROmorphone 2 MG/1 ML VIAL IV PRN ×3 (04:42→14:45)
[2020-04-18] MEDS: SODIUM CHLORIDE 0.9% 1,000 ML IV SCH ×2 (04:47→16:09)
[2020-04-18] MEDS: ENOXAPARIN 100 MG/ML SYRINGE SUBCUT SCH (05:36)
[2020-04-18 06:44] LABS: Basophils % 0.1 % (0.0-0.8); Hematocrit 30.2 VOL% (35.7-47.0); Hemoglobin 8.9 GM/DL (12.0-16.0); Lymphocytes # 0.6 10*3/uL (1.4-4.0); Lymphocytes % 5.9 % (21.3-54.2); Mean Corpuscular HGB Conc 29.5 GM/DL (32-36); Mean Corpuscular Volume 83.4 FL (87-102); Mean Platelet Volume 9.2 FL (9.6-12.0); Monocytes % 4.2 % (1.7-12.7); NRBC # 0.03 10*3/uL; Neutrophils % 88.8 % (38.7-73.9); Platelet Count 239 T/CUMM (130-400); Red Blood Count 3.62 MC/CUMM (3.8-5.5); Red Cell Distribution Width 21.4 % (9.3-17.3); White Blood Count 9.8 T/CUMM (4-12)
[2020-04-18 07:01] LABS: Albumin 2.5 G/DL (3.4-5.0); Calcium 8.6 MG/DL (8.5-10.1); Osmolality,Calculated 288.8 MOS/KG (273-304); Total Protein 7.5 G/DL (6.4-8.3)
[2020-04-18] MEDS: MORPHINE ER 30 MG TABLET PO SCH ×2 (07:52→08:36)
[2020-04-18] MEDS: NEBIVOLOL 5 MG TABLET PO SCH (08:33)
[2020-04-18] MEDS: levETIRAcetam LIQUID 100 MG/ML 30 ML/BOTTLE PO SCH (08:36)
[2020-04-18] MEDS: DOXYCYCLINE HYCLATE INJ 100 MG in SODIUM CHLORIDE 0.9% 100 ML IV SCH (08:37)
[2020-04-18] MEDS ORDERED: ASPIRIN EC 325 MG TABLET PO SCH (09:00)
[2020-04-18 16:28] VITALS: BP 97/62
[2020-04-19] MEDS ORDERED: ENOXAPARIN 40 MG/0.4 ML SYRINGE SUBCUT SCH (09:00)
== END 2020-04-18 17:45 | disposition hospice, home (50) | DRG 54 ==
LOC: EDUNIT# → EDBD → N.ED 22:56 → N.EDINP 22:56 → N.5E 04-17 03:41 → SUATTDRO 04-17 12:34
PROVIDERS: ADMIT Emergency Medicine; ATTEND Family Medicine